=== PATIENT | female | born 1980 | race Caucasian/White ===

== ENCOUNTER 2021-03-22 15:49 | Emergency (ER) | payer OTHER, SELFPAY ==
[2021-03-22 15:54] VITALS: BP 150/96; PULSE 87; RESP 16; TEMP 36.8; O2SAT 99; BMI 29.0
--- NOTE | 2021-03-22 17:26 | ED.GENADULT ---
HPI - General Adult General Chief complaint: General Medical Stated complaint: med reaction Time Seen by Provider: 03/22/21 16:36 Source: patient Mode of arrival: ambulatory Limitations: no limitations History of Present Illness HPI narrative: 41-year-old female who is currently being treated for pharyngitis on penicillin started on Thursday approximately 6 days ago presenting to the ED with complaints of feeling tightness/itching in her throat for the past few days after taking the antibiotics. She reports she also has a yeast infection she followed up with her OBGYN and took 1 dose of Diflucan but is still having vaginal discharge. Her OBGYN told her to save the 2nd tablet until she finished her antibiotic. She also is requesting a COVID swab due to her son who is 2 years old his preschool notified her reporting that there was a possible exposure to COVID. And she wants to make sure that her actual pharyngitis is not actually COVID. She denies any other symptoms complaints or concerns at this time. Related Data Previous Rx's Medication Instructions Recorded diphenhydramine HCl 25 mg tablet 50 mg PO TID PRN #10 tab 03/22/21 (Benadryl Allergy) famotidine 20 mg tablet (Pepcid) 20 mg PO BID #10 tab 03/22/21 fluconazole 150 mg tablet 150 mg PO Q3D #2 tab 03/22/21 (Diflucan) prednisone 20 mg tablet 40 mg PO DAILY 5 Days #10 tab 03/22/21 Allergies Allergy/AdvReac Type Severity Reaction Status Date / Time Iodinated Contrast Media Allergy Anaphylaxis Verified 03/22/21 15:57 [IV Contrast Dye] Review of Systems Review of Systems: Constitutional : No Weight loss, No Fever, No Chills, No Night Sweats, No Fatigue, NoMalaise ENT/Mouth: Positive throat tightness/itchiness. No ear pain, No sore throat, No Difficulty swallowing Cardiovascular : No Chest Pain, No SOB, No Dyspnea on Exertion, No Orthopnea, NoEdema, No Palpitations Respiratory : No Cough, No Sputum, No Wheezing, No Dyspnea Gastrointestinal : No Nausea, No Vomiting, No abdominal pain, No Diarrhea, No blood streaked emesis, No coffee-ground emesis, No gross hematemesis, No blood streak stool, No gross hematochezia, No Melena Genitourinary : Positive abnormal vaginal discharge, No irregular bleeding, No Dysuria, No Urinary Frequency, No Hematuria,No Urinary Incontinence, No Urgency, No Flank Pain Musculoskeletal : No joint pain, No Myalgias, No Joint Swelling Skin : No Skin Lesions, No rash Neuro : No Weakness, No Numbness, No Paresthesias, No Loss of Consciousness, NoDizziness, No Headache Psych : No Social Issues, Heme/Lymph: No Bruising, No Bleeding,No Lymphadenopathy Endocrine : No Polyuria, No Polydipsia, No Temperature Intolerance Yes all other systems are reviewed and are negative [facility] Past Medical History Attestation statement: The following information was validated with the patient. Medical History Asthma Endometriosis Arturo's disease Surgical History Hx of cholecystectomy Social History Social History Advance Directives: No Advance Directives Information Provided: Yes Patient : No Physical Exam Vital Signs: Vital Signs: Last Vital Signs Temp 98.3 F 03/22/21 15:54 Pulse 87 03/22/21 15:54 Resp 16 03/22/21 15:54 BP 150/96 H 03/22/21 15:54 Pulse Ox 99 03/22/21 15:54 Body Mass Index 29.0 vital signs have been reviewed as normal and appeared to be correct. Blood pressure normal. Heart rate normal. Respiration rate normal. Temperature normal. Oxygen saturation normal. Appearance: Alert. Oriented X3. No acute distress. Head: Normal external exam. Normocephalic. Atraumatic. No Magana signs noted. No raccoon eyes noted Eyes: PERRLA. EOMI. Conjunctiva and sclera normal. Eyelids normal. ENT: EAC normal. TM's Normal. Pharynx normal. Uvula midline. Moist mucous membranes. No trismus noted. No drooling noted. No muffled voice noted. Neck: Normal inspection. Neck supple. FROM. No adenopathy. Thyroid Normal. No meningeal signs. No neck mass noted. CVS: Normal heart rate and rhythm. Heart sound normal. Pulses normal throughout. No murmurs/rales/gallops. Respiratory: No respiratory distress. Painless inspiration. Breath sounds normal. No wheezes/rales/rhonchi noted. Chest nontender. No accessory muscle usage noted or decreased air movement noted. Abdomen: Soft and nontender. Bowel sounds normal in all 4 quadrants. No distention noted. No organomegaly noted. No visible injury noted. Back: No CVA tenderness. Full range of motion noted. No rashes/lesion/induration/fluctuance or signs of infection noted. Skin: Skin warm and dry. Normal skin color. Normal skin turgor. No rashes/lesions/lacerations noted. Extremities: No lower extremity edema. Extremities exhibit normal range of motion. Extremities nontender. Neuro: Oriented X 3. No motor deficit. No sensory deficit. Reflexes normal. Normal steady gait. No focal neuro deficits noted. Vascular: + radial pulses/+ 2 distal pedal pulses/+2 dorsalis pedis b/l. Normal cap refill. No cyanosis noted to upper extremity nails and lower extremity toes nails. Course Course Course Narrative: 41-year-old female presenting to the ED with a possible adverse reaction to penicillin after taking 6 doses for pharyngitis. On exam it does not appear that the patient has pharyngitis. She does not have any trismus or drooling. No signs of anaphylaxis. No rashes noted. Patient is tolerating secretions well. Swallowing normally. No wheezing on exam. Abdomen is soft nontender. I discussed with the patient if she already has 6 days of antibiotic she may not need any more antibiotics and she does not want to take anymore due to she believes she has a yeast infection. Will have her self swab for bacterial vaginosis and yeast. Will treat for yeast. Will DC home with symptomatic treatment for adverse reaction/allergic reaction to penicillin. Will swab for COVID and we will call the patient back with positive results if positive. And DC home with instructions return if any new or worsening symptoms to follow up with primary care provider. Patient understands agrees with this plan. Medical Decision Making Medical Records Medical records reviewed: Yes I reviewed the patient's medical records. Lab Data Lab results reviewed: Yes I reviewed the patient's lab results. Discharge Plan Discharge Clinical Impression: Roz vaginitis, Adverse effect of antibiotic Patient Disposition: Home, Self-Care Instructions: Yeast Infection (ED), Adverse Drug Reaction (ED) Additional Instructions: Lab results if any are positive you will be contacted. If you go into your patient portal you can find out the results sooner before we contact you Prescriptions: New prednisone 20 mg tablet 40 mg PO DAILY 5 Days Qty: 10 RF: 0 diphenhydramine HCl [Benadryl Allergy] 25 mg tablet 50 mg PO TID PRN (Reason: allergic reaction) Qty: 10 RF: 0 famotidine [Pepcid] 20 mg tablet 20 mg PO BID Qty: 10 RF: 0 fluconazole [Diflucan] 150 mg tablet 150 mg PO Q3D Qty: 2 RF: 0 Referrals: Justin Griggs MD [Primary Care Provider] - 2 days Print Language: Argentine
[2021-03-22 18:06] LABS: Influenza A PCR NEGATIVE (Negative); Influenza B PCR NEGATIVE (Negative); Resp Syncy Virus RNA Qual PCR NEGATIVE (Negative); SARS COV2 PCR INHOUSE NEGATIVE (Negative)
[2021-03-23 14:32] LABS: BV Int Neg Control Negative (Negative); BV Int Pos Control Positive (Positive)
== END 2021-03-22 17:49 | disposition home or self-care (01) ==
PROVIDERS: Physician Assistant Medical; Emergency Provider Emergency Medicine; PCP Family Medicine
DX: B37.3 Candidiasis of vulva and vagina (principal); Z20.822 Contact with and (suspected) exposure to COVID-19; Z79.899 Other long term (current) drug therapy
CPT/HCPCS: 0241U; 36415; 87480; 87510; 87660; 99283

== ENCOUNTER 2024-12-29 13:57 | Emergency (ER) | payer OTHER, SELFPAY ==
[2024-12-29 14:17] VITALS: BP 121/76; PULSE 101; RESP 18; TEMP 36.8; O2SAT 100; BMI 29.5
--- NOTE | 2024-12-29 14:18 | ED_ITS ---
HPI - General Adult General Chief complaint: Nausea/Vomiting/Diarrhea Stated complaint: Vomiting 3 days Time Seen by Provider: 12/29/24 16:18 Source: patient Mode of arrival: ambulatory Limitations: no limitations History of Present Illness ED Provider: DR. Reveles HPI narrative: 44-year-old female was just started on the bed-bound 2 weeks ago 2.5 mg subQ weekly after patient received her 2nd dose last week she started to have nausea, vomiting. Man decreased appetite, patient is unable to tolerate oral intake including fluids can not take her thyroxine orally at home. Had a bowel movement this morning, still able to pass flatus. No fever, no chills, no dysuria, no frequency urination, no blood in the urine. Intra-abdominal surgical history significant for cholecystectomy. Related Data Previous Rx's ?Medication ?Instructions ?Recorded dexamethasone 0.5 mg/5 mL oral 10 ml PO ONCE inflammation 1 day 03/22/21 elixir #10 mL diphenhydramine HCl 25 mg tablet 50 mg (2 x 25 mg) PO TID PRN 03/22/21 (Benadryl Allergy) allergic reaction #10 tabs famotidine 20 mg tablet (Pepcid) 20 mg PO BID rash #10 tabs 03/22/21 fluconazole 150 mg tablet 150 mg PO Q3D 2 doses #2 tabs 03/22/21 (Diflucan) prednisone 20 mg tablet 40 mg (2 x 20 mg) PO DAILY rash 5 03/22/21 days #10 tabs ondansetron 4 mg disintegrating 4 mg PO Q8H PRN nausea and 12/29/24 tablet vomiting #5 tabs Allergies Allergy/AdvReac Type Severity Reaction Status Date / Time Iodinated Contrast Media Allergy Anaphylaxis Verified 12/29/24 14:19 [IV Contrast Dye] Penicillins Allergy Hives Verified 12/29/24 14:19 Review of Systems 2 Review of Systems: All other systems are reviewed and are negative Constitutional: Reports as per HPI and Reports no additional constitutional complaints Eyes: Reports as per HPI and Reports no additional eye complaints Reports system reviewed and no additional complaints, except as documented Cardiovascular: Reports as per HPI and Reports no additional cardiovascular complaints Respiratory: Reports as per HPI and Reports no additional respiratory complaints Gastrointestinal: Reports as per HPI and Reports no additional gastrointestinal complaints Genitourinary: Reports no additional female genitourinary complaints Musculoskeletal: Reports no additional musculoskeletal complaints Skin/Breast: Reports system reviewed and no additional complaints, except as docu Psychiatric: Reports no additional psychiatric complaints Endocrine: Reports no additional endocrine complaints Hematologic/Lymphatic: Reports no additional hematologic/lymphatic complaints Allergic/Immunologic: Reports no additional allergic/immunologic complaints Reports system reviewed and no additional complaints, except as documented and Reports Abnormal speech present [facility] Past Medical History Medical History Asthma Endometriosis Arturo's disease Surgical History Hx of cholecystectomy Social History Social History Smoked in Last 30 Days: No Use of substances other than those prescribed or required for medical reasons: No Advance Directives: No Advance Directives Information Provided: Yes Physical Exam ED Vital Signs: Vital Signs - 24 hr 12/29/24 14:17 12/29/24 16:00 12/29/24 17:56 Temperature 98.3 F 97.9 F 97.1 F Pulse Rate 101 H 88 59 Respiratory Rate 18 12 13 Blood Pressure 121/76 109/76 124/60 Pulse Oximetry 100 100 100 Oxygen Delivery Method Room Air Room Air Room Air BMI result Body Mass Index 29.5 Vital signs have been reviewed and appear to be correct. Blood pressure elevated. Heart rate normal. Respiratory rate normal. Temperature normal. Oxygen saturation normal. Appearance: Alert. Oriented X3. No acute distress. Head: Normal external exam. Normocephalic. Atraumatic. No Magana signs noted. No raccoon eyes noted Eyes: PERRLA. EOMI. Conjunctiva and sclera normal. Eyelids normal. ENT: TM's Normal. Pharynx normal. Uvula midline. Moist mucous membranes. No trismus noted. No drooling noted. No muffled voice noted. Neck: Normal inspection. Neck supple. FROM. No adenopathy. Thyroid Normal. No meningeal signs. No neck mass noted. CVS: Normal heart rate and rhythm. Heart sound normal. No murmurs noted. Pulses normal throughout. Respiratory: No respiratory distress. Painless inspiration. Breath sounds normal. No wheezes/rales/rhonchi noted. Chest nontender. No accessory muscle usage noted or decreased air movement noted. Abdomen: Soft and nontender. Bowel sounds normal in all 4 quadrants. No distention noted. No organomegaly noted. No visible injury noted. Back: No CVA tenderness. Full range of motion noted. Skin: Skin warm and dry. Normal skin color. Normal skin turgor. No rashes/lesions/lacerations noted. Extremities: No lower extremity edema. Extremities exhibit normal range of motion. Extremities nontender. Neuro: Oriented X 3. Cranial nerve exam: II-XII are grossly intact No motor deficit. No sensory deficit. Reflexes normal. Course Course Course Narrative: This is a rapid medical exam performed by Caroline Rodriguez NP: Additional HPI, ROS, PE not included below will be deferred to primary provider. Patient is a 44-year-old female presenting with complaint of vomiting since Thursday after injecting second dose of Zepbound. Did not have a BM between Thursday and today. PCP sent to r/o obstruction. Plan: basic labs Reevaluation(s) Reevaluation #1: feels better, able to tolerate p.o. intake, improvement of patient's symptoms. patient was instructed to discuss with her primary doctor to consider an alternative for zepbound, Time: 18:33 Medications Administered Discontinued Medications Generic Name Dose Route Start Last Admin Trade Name Freq PRN Reason Stop Dose Admin Acetaminophen 650 mg 12/29/24 17:47 12/29/24 18:01 Acetaminophen 325 Mg Tablet PO 12/29/24 17:48 650 mg ONCE ONE Administration Al Hydroxide/Mg Hydroxide 30 ml 12/29/24 16:27 12/29/24 17:11 Magnesium Hydrox/Alum Hydrox 30 Ml Oral.Susp PO 12/29/24 16:28 30 ml ONCE ONE Administration Famotidine 20 mg 12/29/24 16:27 12/29/24 17:11 Famotidine/Pf 20 Mg/2 Ml Vial IVPUSH 12/29/24 16:28 20 mg ONCE ONE Administration Lactated Ringer's 1,000 mls @ 999 mls/hr 12/29/24 16:30 12/29/24 18:32 Lr IV 12/29/24 17:30 Infused .Q1H1M GIANLUCA Infusion Ondansetron HCl 4 mg 12/29/24 16:27 12/29/24 17:11 Ondansetron Hcl 4 Mg/2 Ml Vial IVPUSH 12/29/24 16:28 4 mg ONCE ONE Administration Medical Decision Making Differential Diagnosis Differential Diagnoses: The differential diagnosis associated with the presentation includes ( medication side-effect, electrolyte derangement, severe anemia, intra-abdominal pathology.) Admission/Observation Consideration of admission/observation: Escalation of care including admission/observation considered Lab Data MDM Lab Attestation statement: I reviewed the patient's lab results. 12/29/24 14:32 12/29/24 14:32 Labs: Lab Results 12/29/24 Range/Units 14:32 WBC 10.0 (4.8-10.8) X10*3/uL RBC 5.35 (4.20-5.50) X10*6/uL Hgb 15.7 (12.0-16.0) g/dl Hct 46.7 (37.0-47.0) % MCV 87.3 (80.0-98.0) fL MCH 29.3 (27.0-33.0) pg MCHC 33.6 (31.0-35.0) g/dl RDW 12.1 (11.0-16.0) % Plt Count 300 (160-400) X10*3/uL MPV 8.8 L (9.4-12.3) fL Immature Gran % (Auto) 0.2 (0.0-0.4) % Neut % (Auto) 61.7 (45-73) % Lymph % (Auto) 28.1 (20-40) % [place] % (Auto) 8.7 (2-11) % Eos % (Auto) 0.8 (0-4) % Baso % (Auto) 0.5 (0-2) % Lymph # (Auto) 2.8 (1.2-4.9) X10*3/uL [place] # (Auto) 0.9 (0.1-1.2) X10*3/uL Eos # (Auto) 0.1 (0.0-0.4) X10*3/uL Baso # (Auto) 0.1 (0.0-0.2) X10*3/uL Abs Immat Gran (auto) 0.02 (0.00-0.03) X10*3/uL Absolute Neuts (auto) 6.2 (2.0-8.3) x10*3/uL Absolute Nucleated RBC 0.000 (0.0-0.012) X10*3/uL Nucleated RBC % (auto) 0.0 (0.0-0.2) /100WBC Sodium 140 (135-145) mmol/L Potassium 3.8 (3.3-5.1) mmol/L Chloride 105 (96-108) mmol/L Carbon Dioxide 28 (22-29) mmol/L Anion Gap 11 L (12-20) BUN 12 (9-16) mg/dL Creatinine 0.94 (0.5-1.4) mg/dL Estim Creat Clear Calc 77.9 Estimated GFR > 60 Random Glucose 92 (60-115) mg/dL Calcium 9.9 (8.4-10.2) mg/dL Total Bilirubin 0.8 (0.0-1.0) mg/dL AST 21 (5-31) U/L ALT 29 (0-31) U/L Alkaline Phosphatase 74 (39-117) U/L Total Protein 7.8 (6.5-8.0) g/dL Albumin 4.6 (3.5-5.0) g/dL Beta HCG, Quant < 2 mIU/mL Discharge Plan Discharge Clinical Impression: Vomiting Patient Disposition: Home, Self-Care Instructions: Acute Nausea and Vomiting (ED) Prescriptions: New ondansetron 4 mg tablet,disintegrating 4 mg PO Q8H PRN (Reason: nausea and vomiting) Qty: 5 0RF No Action prednisone 20 mg tablet 40 mg PO DAILY 5 Days Qty: 10 0RF diphenhydramine HCl [Benadryl Allergy] 25 mg tablet 50 mg PO TID PRN (Reason: allergic reaction) Qty: 10 0RF famotidine [Pepcid] 20 mg tablet 20 mg PO BID Qty: 10 0RF fluconazole [Diflucan] 150 mg tablet 150 mg PO Q3D Qty: 2 0RF Rx Instructions: may repeat second dose 72 hrs after first dose if symptoms persist dexamethasone 0.5 mg/5 mL elixir 10 ml PO ONCE 1 Days Qty: 10 0RF Rx Instructions: swish and spit Referrals: Justin Griggs MD [Primary Care Provider] - Print Language: Sinhala
[2024-12-29 14:34] LABS: MANUAL DIFF FLAG NO
[2024-12-29 14:36] LABS: Basophils Absolute Auto 0.1 X10*3/uL (0.0-0.2); Basophils Percent Auto 0.5 % (0-2); Eosinophils Absolute Auto 0.1 X10*3/uL (0.0-0.4); Eosinophils Percent Auto 0.8 % (0-4); Hematocrit 46.7 % (37.0-47.0); Hemoglobin 15.7 g/dl (12.0-16.0); Imm Gran Abs Auto 0.02 X10*3/uL (0.00-0.03); Imm Gran Pct Auto 0.2 % (0.0-0.4); Lymphocytes Absolute Auto 2.8 X10*3/uL (1.2-4.9); Lymphocytes Percent Auto 28.1 % (20-40); Mean Corpuscular HGB Conc 33.6 g/dl (31.0-35.0); Mean Corpuscular Hemoglobin 29.3 pg (27.0-33.0); Mean Corpuscular Volume 87.3 fL (80.0-98.0); Mean Platelet Volume 8.8 fL (9.4-12.3); Monocytes Absolute Auto 0.9 X10*3/uL (0.1-1.2); Monocytes Percent Auto 8.7 % (2-11); Neutrophils Absolute Auto 6.2 x10*3/uL (2.0-8.3); Neutrophils Percent Auto 61.7 % (45-73); Platelet Count 300 X10*3/uL (160-400); Red Blood Count 5.35 X10*6/uL (4.20-5.50); Red Cell Distribution Width 12.1 % (11.0-16.0)
[2024-12-29 15:04] LABS: Alanine Aminotransferase 29 U/L (0-31); Albumin Level 4.6 g/dL (3.5-5.0); Alkaline Phosphatase 74 U/L (39-117); Anion Gap 11 (12-20); Aspartate Amino Transferase 21 U/L (5-31); Bilirubin Total 0.8 mg/dL (0.0-1.0); Blood Urea Nitrogen 12 mg/dL (9-16); Calcium 9.9 mg/dL (8.4-10.2); Carbon Dioxide 28 mmol/L (22-29); Chloride 105 mmol/L (96-108); Creatinine Clr Calc Pharmacy 77.9; Estimated Glomerular Filt Rate > 60; Glucose Random 92 mg/dL (60-115); HCG Quantitative < 2 mIU/mL; Potassium 3.8 mmol/L (3.3-5.1); Sodium 140 mmol/L (135-145); Total Protein 7.8 g/dL (6.5-8.0)
[2024-12-29 16:00] VITALS: BP 109/76; PULSE 88; RESP 12; TEMP 36.6; O2SAT 100
[2024-12-29] MEDS: ondansetron HCL 4 MG/2 ML VIAL IVPUSH (17:11)
[2024-12-29] MEDS: Magnesium Hydrox/Alum Hydrox 30 ML ORAL.SUSP PO (17:11)
[2024-12-29] MEDS: Famotidine/PF 20 MG/2 ML VIAL IVPUSH (17:11)
[2024-12-29] MEDS: Lactated Ringers 1,000 ML 999 ML IV (17:15)
[2024-12-29 17:56] VITALS: BP 124/60; PULSE 59; RESP 13; TEMP 36.2; O2SAT 100
[2024-12-29] MEDS: Acetaminophen 325 MG TABLET 650 MG PO (18:01)
[2024-12-29 19:14] VITALS: BP 107/70; PULSE 62; RESP 20; TEMP 36.7; O2SAT 100
[2024-12-29 19:15] VITALS: BP 107/70; PULSE 62; RESP 20; TEMP 36.7; O2SAT 100
== END 2024-12-29 19:18 | disposition home or self-care (01) ==
PROVIDERS: Registered Nurse Emergency; Emergency Provider Emergency Medicine; PCP Family Medicine
DX: R11.2 Nausea with vomiting, unspecified (principal); J45.909 Unspecified asthma, uncomplicated; Z90.49 Acquired absence of other specified parts of digestive tract
CPT/HCPCS: 36415; 80053; 84702; 85025; 96361; 96374; 96375; 99284; 99285; J1308; J2405; J7120